=== PATIENT | male | born 1970 | race Caucasian/White ===

== ENCOUNTER 2019-07-18 11:46 | Emergency (ER) | payer SELFPAY ==
[2019-07-18 11:49] VITALS: BP 178/124; PULSE 95; RESP 18; TEMP 36.7; O2SAT 99; BMI 38.7
--- NOTE | 2019-07-18 12:07 | ED_ITS ---
Entered by Rhonda Agrawal, acting as scribe for Mikki Cuevas MD HPI - Anxiety General: Chief Complaint: Anxiety Stated Complaint: HYPERTENSION Time Seen by Provider: 07/18/19 11:51 Source: patient Mode of arrival: ambulatory Limitations: no limitations History of Present Illness: HPI narrative: 49 yo Male presents to ED with complaint of anxiety and hypertension. Pt states that he started feeling a lot of anxiety and flushed. Pt states that he checked his blood pressure and it was elevated. Pt states that this made him more anxious. Pt is taking Lisinopril- HCTZ 20-25MG 1 time daily, Metoprolol tartrate 25 mg 1 time daily, and 81 mg low dose aspirin. Pt states that he is a long way from home as he lives in [facility]. Pt states that [place] [address] Pt is a assembler truck trailer. Pt states that he hasn't had a check up with a doctor in a while. complaint: anxiety Onset (ago): hour(s) Quality: constant Place: work History of similar episodes: No Relieving factors: nothing Exacerbating factors: nothing Associated symptoms: Deny chest pain, chills, diaphoresis, fever(s), headache(s), nausea, palpitations or short of breath Review of Systems General: Reports: 10 or more systems reviewed and unremarkable except in HPI and below Const: Denies: fever, chills, change in appetite, night sweats or diaphoresis Eyes: Denies: change in vision ENMT: Denies: throat pain or ear pain Card: Denies: chest pain or palpitations Resp: Denies: shortness of breath or productive cough GI: Denies: nausea : Denies: flank pain Musc: Denies: back pain Skin/Breast: Denies: rash Neuro: Denies: headache Psych: Reports: anxiety; Denies: depression Endo: Denies: excessive thirst Ridge/Lymph: Denies: easy bruising PFSH ED PFSH: Statuses (acute, chronic, etc) shown below reflect problem list status as previously entered and may not be historically accurate Social History Smoking and tobacco status: never smoked Physical Exam Const: COMMON NORMALS: no apparent distress, oriented x3 and alert GENERAL APPEARANCE: cooperative and well developed; not in distress and not diaphoretic ORIENTATION/CONSCIOUSNESS: Yes awake, Yes oriented to person, Yes oriented to place and Yes oriented to time HENMT: COMMON NORMALS: normocephalic, head/scalp atraumatic, external ears normal, external nose normal and moist oral mucous membranes HEAD & SCALP: normocephalic and atraumatic FACE & SINUS: normal facial exam; no facial tenderness NOSE: external nose normal EXTERNAL EAR: Yes external ears normal MOUTH: oral and palatal mucosa normal, lip normal and tongue normal TEETH & GINGIVA: no abnormal tooth and associated gingiva THROAT: posterior oropharynx normal and uvula midline Eye: COMMON NORMALS: PERRL and EOMs intact bilaterally PUPIL: Yes PERRL Neck/C-Spine: COMMON NORMALS: full ROM, supple and no JVD GENERAL: Yes normal visual inspection and Yes trachea midline CERVICAL SPINE: No cervical spine tenderness Lymph: LYMPHATIC: no lymphadenopathy noted Chest: COMMONS NORMALS: inspection of chest normal Resp: COMMON NORMALS: normal respiratory effort, no use of accessory muscles and clear to auscultation bilaterally EFFORT & INSPECTION: Yes able to speak in complete sentences and Yes symmetric chest movement AUSCULTATION: clear to auscultation bilaterally Cardio: COMMON NORMALS: no JVD, regular rate, regular rhythm, no gallops, no murmurs and peripheral pulses 2+ throughout RATE: regular rate RHYTHM: regular rhythm PERIPHERAL PULSES: pulses 2+ throughout GI: COMMON NORMALS: normal to inspection, nondistended, normoactive bowel sounds, soft to palpation and non-tender PALPATION: Yes soft Back/Pelvis: COMMON NORMALS: thoracic and lumbar spine normal to inspection and thoraco-lumbar ROM normal Extremity: COMMON NORMALS: normal to inspection, full ROM and normal capillary refill Neuro: COMMON NORMALS: oriented x3, CN's II-XII intact bilaterally, moves all extremities, no focal motor deficits and no sensory deficits noted SENSORIUM/ORIENTATION: Yes alert, Yes oriented to person, Yes oriented to place and Yes oriented to time Psych: COMMON NORMALS: mental status grossly normal, thought process normal, cooperative, affect normal, speech normal and activity/motor behavior normal SPEECH: Yes normal speech MOOD & AFFECT: Yes anxious and Yes tearful THOUGHT PROCESS: normal thought process Skin: COMMON NORMALS: no rashes or lesions noted and skin turgor normal GENERAL SKIN EXAM: no rashes or lesions noted and turgor normal Course Reevaluation(s): Reevaluation #1: Patient calm now. He now tells me that he drinks heavily on the weekends - but not during the week when he is out driving his truck. he wonders if the alcohol could be causing a problem with his BP. We discussed this and he plans to stop drinking. I don't think this is an actual alcohol withdrawal situation, but we did discuss the adverse affects of alcohol on BP and anxiety or depression. Vital Signs: Vital signs: Vital Signs Temperature 98.1 F 07/18/19 11:49 Pulse Rate 93 07/18/19 14:28 Respiratory Rate 17 07/18/19 14:28 Blood Pressure 145/105 07/18/19 14:28 Pulse Oximetry 96 07/18/19 14:28 MDM - Anxiety MDM Narrative: Medical decision making narrative: Neg work up including EKG, CXR, troponin. Patient felt better after ativan. We discussed the need to rest and limit alcohol intake. I asked him to see his PCP when he gets back home and not to drive until tomorrow morning. I gave him a script for #7 xanax but he understands that he cannot drive if he takes this - and that it is only for severe symptoms. Imaging Data^: CXR: Radiologist's impression: [address] [address] XRay Report Signed Patient: Isabella Morrissey #: [id number] : 1970Acct#:[id number] Age/Sex: 49 / MADM Date: 07/18/19 Loc: ERRoom/Bed: Attending Dr: Ordering Provider/Ordering MD: Mikki Cuevas MD Date of Service: 07/18/19 Procedure(s): XR chest 1V portable [id number] Accession Number(s): [id number] Report Number: [id number] PROCEDURE INFORMATION: Exam: XR Chest, 1 View Exam date and time: 07/18/2019 12:26 PM Age: 49 years old Clinical indication: Chest pain; Type not specified TECHNIQUE: Imaging protocol: XR of the chest Views: 1 view. COMPARISON: No relevant prior studies available. FINDINGS: Lungs: No lung consolidation or pulmonary edema. Calcified granuloma in the lateral left lung base. Pleural space: No pleural effusion or pneumothorax. Heart/Mediastinum: The cardiac silhouette is not enlarged. The mediastinal contours are normal. Calcified left hilar lymph nodes from prior granulomatous disease. Bones/joints: Right glenohumeral joint degeneration. XR/XR chest 1V portable [id number] IMPRESSION: No acute abnormality. Dictated By:Ashok Watt Signed By:Ashok WattSigned Date/Time:07/18/19 1302 DD/ 1300 EKG Data^: EKG 1: EKG interpretation date: 07/18/19 EKG interpretation time: 13:40 Interpretation: Chest X-Ray 07/18/19 12:15 IMPRESSION: No acute abnormality. normal EKG, rate 76 Other EKG comments: Chest X-Ray 07/18/19 12:15 IMPRESSION: No acute abnormality. Lab Data: Labs: Lab Results 07/18/19 07/18/19 07/18/19 Range/Units 12:30 12:30 12:30 WBC 7.7 (4.0-10.0) 10^3/ uL RBC 5.06 (4.1-5.3) 10^6/u L Hgb 15.1 (11.7-16.6) g/dL Hct 43.8 (42.0-52.0) % MCV 86.6 (80-94) fL MCH 29.8 (28.0-34.0) pg MCHC 34.5 (30.0-36.0) g/dL RDW 11.9 L (12.1-15.1) % Plt Count 351 (130-400) 10^3/c mm MPV 9.1 (7.4-10.4) fL Neut % (Auto) 76.5 % Lymph % (Auto) 15.0 % Cannon % (Auto) 7.3 % Eos % (Auto) 0.4 % Baso % (Auto) 0.3 % Neut # (Auto) 5.9 (1.8-7.7) 10^3/u L Lymph # (Auto) 1.2 (0.8-4.8) 10^3/u L Cannon # (Auto) 0.6 (0.2-0.9) 10^3/u L Eos # (Auto) 0.0 (0.0-0.8) 10^3/u L Baso # (Auto) 0.0 (0.0-0.1) 10^3/u L Nucleated RBC % (a uto) 0 % Nucleated RBCs # 0.0 /100WBC Sodium 136 (136-145) mmol/L Potassium 3.8 (3.5-5.1) mmol/L Chloride 99 (98-107) mmol/L Carbon Dioxide 21 L (22-29) mmol/L Anion Gap 19.8 H (5-19) BUN 18 (6-20) mg/dL Creatinine 1.0 (0.7-1.2) mg/dL GFR Calculation 80.1 L (90-130) mL/min Glucose 136 H (65-115) mg/dL Calcium 10.1 (8.5-10.5) mg/dL Total Bilirubin 0.4 (0.15-1.2) mg/dL AST 21 (0-40) U/L ALT 29 (0-41) U/L Alkaline Phosphata se 77 (40-130) IU/L Troponin T Baselin e 8 (0-15) ng/mL Total Protein 7.2 (6.6-8.7) g/dL Albumin 4.7 (3.5-5.2) g/dL Globulin 2.5 (1.3-4.6) g/dL Discharge Plan Discharge Patient Disposition: Home, Self-Care Clinical Impression: Acute anxiety, Hypertension Condition: Stable Prescriptions: New Xanax 0.5 mg tablet 0.5 mg PO BID PRN (Reason: anxiety) Qty: 7 RF: 0 No Action lisinopril-hydrochlorothiazide 20-25 mg Tablet 1 tab PO DAILY RF: 0 aspirin 81 mg Tablet,Chewable 81 mg PO DAILY RF: 0 metoprolol tartrate 25 mg Tablet 25 mg PO DAILY RF: 0 Discharge Orders: Discharge Order (Routine); Ordered 07/18/19 Ordered By: Mikki Cuevas Patient Instructions: Anxiety (ED) Activity Restrictions/Additional Instructions: Do not drive until tomorrow morning. Stop or cut down on your alcohol use on the weekends. See your doctor within a week for re-evaluation and to discuss management of your blood pressure and anxiety. The medication prescribed today is for you to use if you have another episode like you did today - but not on a regular basis. If you do take that medicine - do not drive for at least 6 hours. Stand Alone Forms: Work/School Release Discharge Date/Time: 07/18/19 14:34 Coding Level of Care Code ED Registered Radiographer for Chg Fwd Exam Problem Focused The documentation recorded by the Nghia nuno Carmen, accurately reflects the service I personally performed and the decisions made by me, Mikki Cuevas MD Jul 18, 2019 11:46
--- NOTE | 2019-07-18 12:15 | ECG_ITS ---
Measurements Intervals Roll Rate: 76 P: 37 CA: 142 QRS: 33 QRSD: 105 T: 53 QT: 359 QTc: 405 SINUS RHYTHM No previous ECG available for comparison Electronically Signed On 07-18-2019 20:55:12 TRIBAL JUDGE by Leann Barry M.D. [email or web address]
--- NOTE | 2019-07-18 12:15 | XRR_ITS ---
PROCEDURE INFORMATION: Exam: XR Chest, 1 View Exam date and time: 07/18/2019 12:26 PM Age: 49 years old Clinical indication: Chest pain; Type not specified TECHNIQUE: Imaging protocol: XR of the chest Views: 1 view. COMPARISON: No relevant prior studies available. FINDINGS: Lungs: No lung consolidation or pulmonary edema. Calcified granuloma in the lateral left lung base. Pleural space: No pleural effusion or pneumothorax. Heart/Mediastinum: The cardiac silhouette is not enlarged. The mediastinal contours are normal. Calcified left hilar lymph nodes from prior granulomatous disease. Bones/joints: Right glenohumeral joint degeneration. XR/XR chest 1V portable [id number] IMPRESSION: No acute abnormality.
[2019-07-18] MEDS: LORazepam 2 mg/mL INJ 1 mL 1 MG IVP (12:45)
[2019-07-18 13:08] LABS: Basophils % 0.3 %; Eosinophils % 0.4 %; Hematocrit 43.8 % (42.0-52.0); Hemoglobin 15.1 g/dL (11.7-16.6); Lymphocytes # 1.2 10^3/uL (0.8-4.8); Mean Corpuscular HGB Conc 34.5 g/dL (30.0-36.0); Mean Corpuscular Hemoglobin 29.8 pg (28.0-34.0); Mean Corpuscular Volume 86.6 fL (80-94); Mean Platelet Volume 9.1 fL (7.4-10.4); Monocytes # 0.6 10^3/uL (0.2-0.9); Monocytes % 7.3 %; Neutrophils # 5.9 10^3/uL (1.8-7.7); Neutrophils % 76.5 %; Nucleated Red Blood Cells % 0 %; Platelet Count 351 10^3/cmm (130-400); Red Blood Count 5.06 10^6/uL (4.1-5.3); Red Cell Distribution Width 11.9 % (12.1-15.1); White Blood Count 7.7 10^3/uL (4.0-10.0)
[2019-07-18 13:16] LABS: Alanine Aminotransferase 29 U/L (0-41); Albumin Level 4.7 g/dL (3.5-5.2); Alkaline Phosphatase 77 IU/L (40-130); Anion Gap 19.8 (5-19); Aspartate Amino Transferase 21 U/L (0-40); Blood Urea Nitrogen 18 mg/dL (6-20); Calcium 10.1 mg/dL (8.5-10.5); Carbon Dioxide 21 mmol/L (22-29); Chloride 99 mmol/L (98-107); Globulin 2.5 g/dL (1.3-4.6); Glomerular Filtration Rate 80.1 mL/min (90-130); Glucose 136 mg/dL (65-115); Potassium 3.8 mmol/L (3.5-5.1); Sodium 136 mmol/L (136-145); Total Bilirubin 0.4 mg/dL (0.15-1.2); Total Protein 7.2 g/dL (6.6-8.7)
[2019-07-18 13:20] LABS: Troponin(5th) Baseline 8 ng/mL (0-15)
[2019-07-18 14:28] VITALS: BP 145/105; PULSE 93; RESP 17; O2SAT 96
== END 2019-07-18 14:34 | disposition home or self-care (01) ==
PROVIDERS: Emergency Provider Emergency Medicine
DX: F41.9 Anxiety disorder, unspecified (principal); I10 Essential (primary) hypertension; Z79.82 Long term (current) use of aspirin
CPT/HCPCS: 36415; 71045; 80053; 84484; 85025; 93005; 96374; 96375; 99281; 99284; J2060